=== PATIENT | female | born 1975 | race Caucasian/White ===

== ENCOUNTER → 2016-09-01 | Outpatient (CLI) | payer OTHER ==
--- NOTE | 2016-09-01 14:24 | P.CONS ---
History of Present Illness - Reason for Consult Consult date: 09/01/16 - Chief Complaint Lower back pain - History of Present Illness This is a 41year-old female with history of chronic lower back pain that started about 8 years ago after she delivered her last Daughter naturally. The pain does not radiate down her lower extremities. It gets worse by doing had a normal daily activities it occasionally wakes her up at night. The patient denies any weight loss or any bowel or bladder dysfunction or any fever recently she also denies any weakness in the upper or lower extremities. The patient admits to using marijuana occasionally to help her with the pain however she gets [place] 10 mg 3 times a day prescribed by her family physician up until this point. She had what seems to be RFA on the lumbar medial branches a few years ago in our clinic and it did give her prolonged period of pain relief as the patient states. She had an MRI done in May 2016 which showed mild degeneration at the L4 5 disc with mild to moderate effacement of the thecal sac and mild bilateral neural foraminal stenosis plus hypertrophic changes of the facet joints. Review of Systems All systems: negative Past Medical History Past Medical History: Asthma, Musculoskeletal Disorder, Seizure Disorder Additional Past Medical History / Comment(s): INJURY TO RT KNEE. SEIZURE AN . ASTHMA CHILD. History of Any Multi-Drug Resistant Organisms: None Reported Past Surgical History: Cholecystectomy Additional Past Surgical History / Comment(s): MISCARRIAGE/D&C Past Anesthesia/Blood Transfusion Reactions: No Reported Reaction Past Psychological History: Anxiety, Depression, Panic Disorder Smoking Status: Former smoker Past Alcohol Use History: Occasional Past Drug Use History: Marijuana Additional Drug Use History / Comment(s): ONLY IN PAST - Past Family History Mother Family Medical History: No Reported History Medications and Allergies Home Medications Medication Instructions Recorded Confirmed Type HYDROcodone/APAP 10-325MG [[place] 1 tab PO Q8HR PRN 09/01/16 09/01/16 History 10-325] Allergies Allergy/AdvReac Type Severity Reaction Status Date / Time azithromycin AdvReac Vomiting Verified 10/22/15 14:27 Physical Exam Vitals: Intake and Output 08/31/16 09/01/16 09/01/16 22:59 06:59 14:59 Other: Weight 77.111 kg Patient Weight 09/02/16 06:59 Weight 77.111 kg - Psychiatric Psychiatric: A&O x's 3 The patient is alert oriented 3 in no apparent distress she has a flat affect Lungs are clear to auscultation heart is regular no murmurs Neuro exam of the lower extremities showed hyperactive but symmetrical knee reflexes and absent ankle reflexes bilaterally and symmetrically. Normal muscle strength in the lower extremities. Mild tenderness in the lumbar paravertebral area bilaterally. No sacroiliac joint tenderness bilaterally. The patient has normal range of motion of the lumbar spine. Straight leg raising test negative bilaterally. Assessment and Plan Plan: This is a 5-year-old female with axial lower back pain most likely due to facet arthropathy and degenerative disc disease in the lumbar spine. The patient may benefit from getting lumbar medial branch block and then residency ablation if the diagnostic medial branch block works for her. The patient asked for prescription of [place] but I told her that we will try the injection before we put her on opioids and offered her a prescription of tramadol but she said that tramadol never worked on her before. We will do her injection next week.
== END | disposition home or self-care (01) ==
CPT/HCPCS: 99211

== ENCOUNTER 2018-02-05 10:18 | Emergency (ER) | payer OTHER ==
[2018-02-05] MEDS ORDERED: SODIUM CHLORIDE 0.9% 2,000 ML IV STA (10:58)
[2018-02-05] MEDS ORDERED: ONDANSETRON 4 MG/2 ML VIAL IVP STA (10:58)
[2018-02-05] MEDS ORDERED: cefTRIAXone IN SWFI 1,000 MG/10 ML SYRINGE IVP STA (10:58)
[2018-02-05] MEDS ORDERED: MORPHINE SULFATE 2 MG/ML SYRINGE IV STA (10:58)
[2018-02-05] MEDS ORDERED: SODIUM CHLORIDE 0.9% 1,000 ML IV STA (10:58)
[2018-02-05 11:42] LABS: Basophils # (A) 0.1 k/uL (0-0.2); Basophils % (A) 0 %; Eosinophils # (A) 0.1 k/uL (0-0.7); Eosinophils % (A) 1 %; Lymphocytes # (A) 2.4 k/uL (1.0-4.8); Lymphocytes % (A) 24 %; MCH 33.3 pg (25.0-35.0); MCHC 34.7 g/dL (31.0-37.0); Mean Platelet Volume 7.1; Monocytes # (A) 0.5 k/uL (0-1.0); Monocytes % (A) 5 %; Neutrophils % (A) 69 %; Platelet Count 313 k/uL (150-450); RBC 4.79 m/uL (3.80-5.40); WBC 10.1 k/uL (3.8-10.6)
[2018-02-05 11:45] LABS: Appearance,Urine Cloudy (Clear); Bacteria,Urine Rare /hpf; Bilirubin,Urine Negative (Negative); Blood,Urine Small (Negative); Color,Urine Yellow; Glucose,Urine (UA) Negative (Negative); Ketones,Urine Negative (Negative); Leukocyte Esterase,Urine Trace (Negative); Mucus,Urine Few /hpf; Nitrite,Urine Positive (Negative); Protein,Urine Trace (Negative); RBC,Urine 2 /hpf (0-5); Specific Gravity,Urine 1.017 (1.001-1.035); Squamous Epithelial Cell,Urine 2 /hpf (0-4); Urobilinogen,Urine <2.0 mg/dL (<2.0); WBC,Urine 2 /hpf (0-5)
[2018-02-05 11:52] LABS: ALT 23 U/L (9-52); AST 18 U/L (14-36); Albumin 4.1 g/dL (3.5-5.0); Alkaline Phosphatase 57 U/L (38-126); Amylase 48 U/L (30-110); Anion Gap 12 mmol/L; Blood Urea Nitrogen 12 mg/dL (7-17); Calcium 9.2 mg/dL (8.4-10.2); Carbon Dioxide 25 mmol/L (22-30); Chloride 101 mmol/L (98-107); Glucose 104 mg/dL (74-99); Lipase 69 U/L (23-300); Potassium 3.3 mmol/L (3.5-5.1); Sodium 138 mmol/L (137-145); Total Bilirubin 0.8 mg/dL (0.2-1.3); Total Protein 6.3 g/dL (6.3-8.2)
[2018-02-05 12:18] LABS: C Reactive Protein <5.0 mg/L (<10.0)
--- NOTE | 2018-02-05 12:22 | ED ---
Abdominal Pain HPI - General Chief Complaint: Abdominal Pain Stated Complaint: Abd Pain Time Seen by Provider: 02/05/18 10:37 Source: patient Mode of arrival: ambulatory Limitations: no limitations - History of Present Illness Initial Comments: 42 years old female comes in with the right lower quadrant pain started 9 PM yesterday presented with the nausea and diarrhea no vomiting this is the first time ever she experiences pain she noticed some cramps. She has her tubes tied last menstrual period was about 2.5 weeks ago and she is also status post cholecystectomy. Again in the right lower quadrant is a 05/08 at this point, no chest pain or shortness of breath no pleuritic chest pain - Related Data Home Medications Medication Instructions Recorded Confirmed Acetaminophen with Codeine 1 tab PO Q6H PRN 02/05/18 02/05/18 [Tylenol w/codeine #4] Lisinopril-Hctz 10-12.5 mg 1 tab PO DAILY 02/05/18 02/05/18 [Zestoretic 10-12.5] Metoprolol Tartrate [Lopressor] 50 mg PO DAILY 02/05/18 02/05/18 tiZANidine [Zanaflex] 4 mg PO BID PRN 02/05/18 02/05/18 Previous Rx's Medication Instructions Recorded Ciprofloxacin HCl [Cipro] 500 mg PO Q12HR #14 tablet 02/05/18 metroNIDAZOLE [Flagyl] 500 mg PO Q8HR #24 tab 02/05/18 Allergies Allergy/AdvReac Type Severity Reaction Status Date / Time erythromycin base AdvReac Nausea & Verified 02/05/18 12:04 Vomiting Review of Systems ROS Statement: Those systems with pertinent positive or pertinent negative responses have been documented in the HPI. ROS Other: All systems not noted in ROS Statement are negative. Past Medical History Past Medical History: Asthma, Musculoskeletal Disorder, Seizure Disorder Additional Past Medical History / Comment(s): INJURY TO RT KNEE. SEIZURE AN INFANT. ASTHMA CHILD. History of Any Multi-Drug Resistant Organisms: None Reported Past Surgical History: Cholecystectomy Additional Past Surgical History / Comment(s): MISCARRIAGE/D&C Past Anesthesia/Blood Transfusion Reactions: No Reported Reaction Past Psychological History: Anxiety, Depression, Panic Disorder Smoking Status: Current every day smoker Past Alcohol Use History: Occasional Past Drug Use History: Marijuana - Past Family History Mother Family Medical History: No Reported History General Exam - General Exam Comments Initial Comments: General: The patient is awake and alert, in no distress, and does not appear acutely ill. Skin: Skin is warm and dry and no rashes or lesions are noted. Eye: Pupils are equal, round and reactive to light, extra-ocular movements are intact; there is normal conjunctiva bilaterally. Ears, nose, mouth and throat: There are moist mucous membranes and no oral lesions. Neck: The neck is supple, there is no tenderness or JVD. Cardiovascular: There is a regular rate and rhythm. No murmur, rub or gallop is appreciated. Respiratory: To auscultation bilateral, no wheezing no rhonchi no distress respiratory tubbs noticed Gastrointestinal: Tender in the right lower quadrant area positive bowel sounds no guarding no rebounds Back: There is no tenderness to palpation in the midline. There is no obvious deformity. Musculoskeletal: Normal ROM, no tenderness, There is no pedal edema. There is no calf tenderness or swelling. No cords were appreciated. Neurological: CN II-XII intact, Cranial nerves III through XII are intact. There are no obvious motor or sensory deficits. Coordination appears grossly intact. Speech is normal. Psychiatric: Cooperative, appropriate mood & affect, normal judgment. Limitations: no limitations Course Vital Signs 02/05/18 10:36 Temperature 97.3 F L Pulse Rate 113 H Respiratory 20 Rate Blood Pressure 158/100 O2 Sat by Pulse 97 Oximetry General reassessed at term 1250 CBC is unremarkable potassium is 3.3 urinalysis is positive for C-reactive protein is less than 5, CT abdomen and pelvis reviewed, question of enteritis, ileus appendix was not visualized. These findings were discussed with the patient, considering that tried is some also send him home on now Cipro and Flagyl patient was advised to stick with the clear liquid diet for next 24 hours and advance as tolerated. RETURN to the ER if she develops high fever chills nausea vomiting and abdominal symptoms get worse then she would need a reassessment she agrees with the Medical Decision Making - Lab Data Result diagrams: 02/05/18 11:28 02/05/18 11:28 Lab Results 02/05/18 02/05/18 02/05/18 Range/Units 11:28 11:28 11:28 WBC 10.1 (3.8-10.6) k/uL RBC 4.79 (3.80-5.40) m/uL Hgb 16.0 (11.4-16.0) gm/dL Hct 46.0 (34.0-46.0) % MCV 96.0 (80.0-100.0) fL MCH 33.3 (25.0-35.0) pg MCHC 34.7 (31.0-37.0) g/dL RDW 13.0 (11.5-15.5) % Plt Count 313 (150-450) k/uL Neutrophils % 69 % Lymphocytes % 24 % Monocytes % 5 % Eosinophils % 1 % Basophils % 0 % Neutrophils # 7.0 (1.3-7.7) k/uL Lymphocytes # 2.4 (1.0-4.8) k/uL Monocytes # 0.5 (0-1.0) k/uL Eosinophils # 0.1 (0-0.7) k/uL Basophils # 0.1 (0-0.2) k/uL Sodium 138 (137-145) mmol/L Potassium 3.3 L (3.5-5.1) mmol/L Chloride 101 (98-107) mmol/L Carbon Dioxide 25 (22-30) mmol/L Anion Gap 12 mmol/L BUN 12 (7-17) mg/dL Creatinine 0.89 (0.52-1.04) mg/dL Est GFR (CKD-EPI)AfAm >90 (>60 ml/min/1.73 sqM) Est GFR (CKD-EPI)NonAf 81 (>60 ml/min/1.73 sqM) Glucose 104 H (74-99) mg/dL Calcium 9.2 (8.4-10.2) mg/dL Total Bilirubin 0.8 (0.2-1.3) mg/dL AST 18 (14-36) U/L ALT 23 (9-52) U/L Alkaline Phosphatase 57 (38-126) U/L C-Reactive Protein <5.0 (<10.0) mg/L Total Protein 6.3 (6.3-8.2) g/dL Albumin 4.1 (3.5-5.0) g/dL Amylase 48 (30-110) U/L Lipase 69 (23-300) U/L Urine Color Yellow Urine Appearance Cloudy H (Clear) Urine pH 6.0 (5.0-8.0) Ur Specific [place] 1.017 (1.001-1.035) Urine Protein Trace H (Negative) Urine Glucose (UA) Negative (Negative) Urine Ketones Negative (Negative) Urine Blood Small H (Negative) Urine Nitrite Positive H (Negative) Urine Bilirubin Negative (Negative) Urine Urobilinogen <2.0 (<2.0) mg/dL Ur Leukocyte Esterase Trace H (Negative) Urine RBC 2 (0-5) /hpf Urine WBC 2 (0-5) /hpf Ur Squamous Epith Cells 2 (0-4) /hpf Urine Bacteria Rare H (None) /hpf Urine Mucus Few H (None) /hpf Disposition Clinical Impression: Abdominal pain, Enteritis, Ileus Disposition: HOME SELF-CARE Condition: Good Instructions: Abdominal Pain (ED) Prescriptions: Ciprofloxacin HCl [Cipro] 500 mg PO Q12HR #14 tablet metroNIDAZOLE [Flagyl] 500 mg PO Q8HR #24 tab Is patient prescribed a controlled substance at d/c from ED?: No Referrals: Khoa Arreola MD [Primary Care Provider] - 1-2 days
--- NOTE | 2018-02-05 12:29 | CT ---
EXAMINATION TYPE: CT abdomen pelvis w con DATE OF EXAM: 02/05/2018 COMPARISON: 12/10/2010 HISTORY: RLQ pain, nausea and diarrhea CT DLP: 1547 mGycm Automated exposure control for dose reduction was used. CONTRAST: CT scan of the abdomen pelvis is performed with IV Contrast, patient injected with 100 mL of Isovue 3 00. FINDINGS- LUNG BASES- No significant abnormality is appreciated. LIVER/GB-there is a 2.5 cm lesion in the right lobe of the liver which measures 5 Hounsfield units co mpatible with a simple cyst. There are multiple additional subcentimeter nodules within the liver whi ch are too small to characterize but also likely represent cysts. Previous cholecystectomy noted.. PANCREAS- No gross abnormality is seen. SPLEEN- No gross abnormality is seen. ADRENALS- No gross abnormality is seen. KIDNEYS/BLADDER- no hydronephrosis nephrolithiasis or renal mass. BOWEL-bowel gas pattern is nonspecific. Appendix is not seen.. There are few prominent small bowel lo ops in the left abdomen with likely thickened castro. Mesenteric vasculature enhances normally. Correl ate for localized ileus or enteritis. LYMPH NODES- No greater than 1cm abdominal or pelvic lymph nodes are appreciated. OSSEOUS STRUCTURES-degenerative disc disease noted.. OTHER- 1 cm hypodensity within the left ovary is compatible with a left ovarian cyst and there is shaw ggestion of previous tubal ligation. IMPRESSION- 1. Appendix is not seen with certainty however, there is no inflammatory changes within the right low er quadrant. 2. There are few prominent small bowel loops within the left abdomen may been the basis of a localize d ileus or enteritis correlate clinically. 3. Left ovarian cyst measuring approximately 1 cm 4. Hepatic cysts
[2018-02-05 13:20] VITALS: BP 128/70; PULSE 91; RESP 16; TEMP 98
== END 2018-02-05 13:19 | disposition home or self-care (01) ==
LOC: EC 10:18
DX: K52.9 Noninfective gastroenteritis and colitis, unspecified (principal); K56.7 Ileus, unspecified; F17.200 Nicotine dependence, unspecified, uncomplicated; Z90.49 Acquired absence of other specified parts of digestive tract; Z79.899 Other long term (current) drug therapy; Z88.1 Allergy status to other antibiotic agents
CPT/HCPCS: 36415; 80053; 82150; 83690; 85025; 86140; 81001; 74177; 99284; 96374; 96375 ×2; 96361 ×2; J2405; J0696; J2270; Q9967

== ENCOUNTER → 2018-06-15 | Outpatient (CLI) | payer OTHER ==
[2018-06-15 08:58] LABS: Basophils # (A) 0.1 k/uL (0-0.2); Basophils % (A) 1 %; Eosinophils # (A) 0.2 k/uL (0-0.7); Eosinophils % (A) 2 %; HCT 40.3 % (34.0-46.0); HGB 13.4 gm/dL (11.4-16.0); Lymphocytes # (A) 2.6 k/uL (1.0-4.8); Lymphocytes % (A) 28 %; MCH 32.4 pg (25.0-35.0); MCHC 33.1 g/dL (31.0-37.0); MCV 97.7 fL (80.0-100.0); Mean Platelet Volume 7.3; Monocytes # (A) 0.5 k/uL (0-1.0); Monocytes % (A) 5 %; Neutrophils # (A) 5.7 k/uL (1.3-7.7); Neutrophils % (A) 62 %; Platelet Count 307 k/uL (150-450); RBC 4.13 m/uL (3.80-5.40); RDW 12.9 % (11.5-15.5); WBC 9.1 k/uL (3.8-10.6)
[2018-06-15 09:41] LABS: ALT 25 U/L (9-52); AST 16 U/L (14-36); Albumin 3.3 g/dL (3.5-5.0); Alkaline Phosphatase 42 U/L (38-126); Anion Gap 7 mmol/L; Blood Urea Nitrogen 10 mg/dL (7-17); Calcium 8.7 mg/dL (8.4-10.2); Carbon Dioxide 27 mmol/L (22-30); Chloride 106 mmol/L (98-107); Cholesterol 170 mg/dL (<200); Glucose 97 mg/dL (74-99); HDL Cholesterol 61 mg/dL (40-60); LDL Cholesterol,Calculated 94 mg/dL (0-99); Potassium 3.5 mmol/L (3.5-5.1); Sodium 140 mmol/L (137-145); Total Bilirubin 0.4 mg/dL (0.2-1.3); Total Protein 5.7 g/dL (6.3-8.2); Triglycerides 75 mg/dL (<150)
== END ==
LOC: LABWHC1 08:22
DX: Z00.00 Encounter for general adult medical examination without abnormal findings (principal); E55.9 Vitamin D deficiency, unspecified
CPT/HCPCS: 36415; 80053; 80061; 82306; 84443; 85025

== ENCOUNTER 2020-03-26 11:25 | Emergency (ER) | payer OTHER ==
[2020-03-26 11:38] VITALS: RESP 18
[2020-03-26] MEDS ORDERED: DIPH,PERTUS(ACELL)TETVAC-LF 0.5 ML VIAL IM ONE (11:48)
[2020-03-26] MEDS ORDERED: HYDROcodone/APAP 5-325MG 1 EACH TAB PO STA (11:50)
[2020-03-26] MEDS ORDERED: LIDOCAINE 1% INJ 10MG/ML (20 ML MDV) SQ ONE (11:50)
--- NOTE | 2020-03-26 12:14 | XR ---
First digit right hand HISTORY: Laceration 3 views of the first digit of the right hand Bone mineralization, joint spaces and alignment are maintained. There is no radiopaque foreign body. No fracture or dislocation. Soft tissue defect is noted. IMPRESSION: Soft tissue injury.
--- NOTE | 2020-03-26 12:45 | ED ---
General Adult HPI - General Chief complaint: Wound/Laceration Stated complaint: thumb lac Time Seen by Provider: 03/26/20 11:39 Source: patient, RN notes reviewed Mode of arrival: ambulatory Limitations: no limitations - History of Present Illness Initial comments: 45-year-old female with a past medical history of asthma, with the skeletal disorder, seizure disorder presents to the emergency department for a chief complaint of laceration to the right thumb. Patient was cleaning a glass bowl when it broke and cut her right thumb. Patient denies any difficulty moving the right thumb. Patient is not up-to-date on tetanus. Patient did not sustain any other injuries.Patient has no other complaints at this time including shortness of breath, chest pain, abdominal pain, nausea or vomiting, headache, or visual changes. - Related Data Home Medications Medication Instructions Recorded Confirmed Naproxen Sodium [Aleve] 220 mg PO DAILY PRN 03/26/20 03/26/20 Allergies Allergy/AdvReac Type Severity Reaction Status Date / Time erythromycin base AdvReac Nausea & Verified 03/26/20 12:32 Vomiting Review of Systems ROS Statement: Those systems with pertinent positive or pertinent negative responses have been documented in the HPI. ROS Other: All systems not noted in ROS Statement are negative. Past Medical History Past Medical History: Asthma, Musculoskeletal Disorder, Seizure Disorder Additional Past Medical History / Comment(s): INJURY TO RT KNEE. SEIZURE AN . ASTHMA CHILD. History of Any Multi-Drug Resistant Organisms: None Reported Past Surgical History: Cholecystectomy Additional Past Surgical History / Comment(s): MISCARRIAGE/D&C Past Anesthesia/Blood Transfusion Reactions: No Reported Reaction Past Psychological History: Anxiety, Depression, Panic Disorder Smoking Status: Current every day smoker Past Alcohol Use History: Occasional Past Drug Use History: Marijuana - Past Family History Mother Family Medical History: No Reported History General Exam Limitations: no limitations General appearance: alert, in no apparent distress Head exam: Present: atraumatic, normocephalic, normal inspection Eye exam: Present: normal appearance, PERRL, EOMI. Absent: scleral icterus, conjunctival injection, periorbital swelling ENT exam: Present: normal exam, mucous membranes moist Neck exam: Present: normal inspection, full ROM. Absent: tenderness, meningismus, lymphadenopathy Respiratory exam: Present: normal lung sounds bilaterally. Absent: respiratory distress, wheezes, rales, rhonchi, stridor Cardiovascular Exam: Present: regular rate, normal rhythm, normal heart sounds. Absent: systolic murmur, diastolic murmur, rubs, gallop, clicks Extremities exam: Present: full ROM (Full range of motion of the right thumb including the MCP and IP joint.), normal capillary refill (Capillary refill less than 2 seconds in the right thumb and right upper extremity. Radial pulses 2+.), other (Patient has a 3 cm laceration noted along the lateral IP joint of the right thumb. Bleeding is controlled at this time.) Course Vital Signs 03/26/20 11:34 Temperature 98.9 F Pulse Rate 75 Respiratory 18 Rate Blood Pressure 159/92 O2 Sat by Pulse 99 Oximetry Procedures - Laceration Laceration #1 Consent Obtained: verbal consent Indication: laceration Site: hand Size (cm): 3 Description: linear Depth: simple, single layer Anesthetic Used: lidocaine 1% Anesthesia Technique: local infiltration Amount (mls): 4 Pre-repair: wound explored, irrigated extensively (With saline pressure irrigation), deep structures intact Type of Sutures: nylon Size of Sutures: 5-0 Number of Sutures: 5 Technique: simple, interrupted Patient Tolerated Procedure: well, no complications Medical Decision Making - Medical Decision Making X-ray of the right thumb shows soft tissue injury without radiopaque foreign body. Full range of motion without evidence of tendon injury. Laceration was repaired with 5 simple interrupted sutures. Discussed care and return precautions. Disposition Clinical Impression: Laceration Disposition: HOME SELF-CARE Condition: Good Instructions (If sedation given, give patient instructions): Care For Your Stitches (ED), Laceration (ED) Additional Instructions: Please keep the area clean. Use mild soap and water to clean the area. Monitor for signs of infection such as spreading or streaking redness, drainage, or fever and return if this occurs. Return in 7-10 days for suture removal. Return if you have any other worsening symptoms as well. Otherwise follow-up with your primary care doctor. Is patient prescribed a controlled substance at d/c from ED?: No Referrals: Helio Combs MD [Primary Care Provider] - 1-2 days Time of Disposition: 12:43
[2020-03-26 12:59] VITALS: BP 136/94; PULSE 78; TEMP 98
== END 2020-03-26 12:58 | disposition home or self-care (01) ==
LOC: EC 11:25
DX: S61.011A Laceration without foreign body of right thumb without damage to nail, initial encounter (principal); F17.200 Nicotine dependence, unspecified, uncomplicated; Z88.1 Allergy status to other antibiotic agents; W25.XXXA Contact with sharp glass, initial encounter; Y93.G1 Activity, food preparation and clean up; Y92.009 Unspecified place in unspecified non-institutional (private) residence as the place of occurrence of the external cause
CPT/HCPCS: 73140; 90715; 90471; 12002; 99283; J2001

== ENCOUNTER 2023-03-16 16:11 | Emergency (ER) | payer OTHER ==
[2023-03-16 16:55] VITALS: RESP 18
[2023-03-16] MEDS ORDERED: DIPH,PERTUS(ACELL)TETVAC-LF 0.5 ML VIAL IM ONE (18:14)
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
--- NOTE | 2023-03-16 18:45 | XR ---
EXAMINATION TYPE: XR wrist complete LT DATE OF EXAM: 03/16/2023 COMPARISON: None HISTORY: Fall on foreign-body TECHNIQUE: 4 view left wrist FINDINGS: No acute fractures are evident. There is a secondary ossification above the ulnar styloid. Cortical margins are smooth. Soft tissues appear normal. Joint spaces are preserved. No radiopaque foreign bodies are identified within the [id number]. Three-phase bone scan can be performed for pain at the anatomic snuff box. MRI can be performed if ev aluation of soft tissues is required. IMPRESSION: 1. No radiopaque foreign body. 2. No acute osseous abnormality.
[2023-03-16] MEDS ORDERED: KETOROLAC 15 MG/ML 1 ML VIAL IM STA (18:50)
[2023-03-16] MEDS ORDERED: CEPHALEXIN 500 MG CAP PO STA (18:50)
[2023-03-16 19:35] VITALS: BP 148/88; PULSE 70; TEMP 98.2
== END 2023-03-16 19:35 | disposition home or self-care (01) ==
LOC: EC 16:11
DX: S61.532A Puncture wound without foreign body of left wrist, initial encounter (principal); J45.909 Unspecified asthma, uncomplicated; F17.200 Nicotine dependence, unspecified, uncomplicated; F12.90 Cannabis use, unspecified, uncomplicated; Z88.1 Allergy status to other antibiotic agents; Z90.49 Acquired absence of other specified parts of digestive tract; Z23 Encounter for immunization; W01.118A Fall on same level from slipping, tripping and stumbling with subsequent striking against other sharp object, initial encounter
CPT/HCPCS: 73110; 90715; 99283; 96372; 90471; J1885